=== PATIENT | male | born 1975 | race Two or more races ===

== ENCOUNTER 2020-05-30 11:56 | Inpatient (IN) | payer MEDICAID, OTHER ==
[~2020-05-30] VITALS: Ht 162.6 cm; Wt 77.1 kg
[2020-05-30] MEDS ORDERED: SODIUM CHLORIDE 0.9% 1,000 ML IV ONE ×2 (12:15)
[2020-05-30] MEDS ORDERED: NALOXONE HCL 1MG/ML 2ML SYRINGE IV ONE (12:30)
[2020-05-30 13:07] LABS: Eosinophils # (auto) 0.1 10 ^3/uL (0-0.8); Neutrophils # (auto) 7.2 10 ^3/uL (1.6-8.6); Red Cell Distribution Width 13.9 % (11.8-14.3)
[2020-05-30 13:09] LABS: Basophils # (auto) 0.1 10 ^3/uL (0-0.2); Basophils % (auto) 0.6 % (0.0-2.0); Eosinophils % (auto) 0.7 % (0.0-7.0); Hematocrit 40.4 % (41.0-53.0); Hemoglobin 13.5 g/dL (13.5-17.5); Lymphocytes # (auto) 0.7 10 ^3/uL (0.4-5.4); Lymphocytes % (auto) 8.6 % (10.0-50.0); Mean Corpuscular Hemoglobin 34.1 pg (28.0-32.0); Mean Corpuscular Hgb Conc. 33.4 g/dL (32.0-36.0); Mean Corpuscular Volume 102.1 fL (80.0-100.0); Monocytes # (auto) 0.6 10 ^3/uL (0-1.3); Monocytes % (auto) 6.9 % (0.0-12.0); Neutrophils % (auto) 83.2 % (37.0-80.0); Platelet Count (auto) 326 10^3/uL (140-450); Red Blood Cells 3.95 10^6/uL (4.5-5.90); White Blood Cell 8.7 10^3/uL (4.4-10.8)
[2020-05-30 13:37] LABS: Albumin 3.2 g/dL (3.4-5.0); Anion Gap 6 (5-15); Blood Urea Nitrogen 13 mg/dL (7-18); Calcium 7.5 mg/dL (8.5-10.1); Carbon Dioxide 25 mmol/L (21-32); Chloride 112 mmol/L (98-107); Glucose 135 mg/dL (74-106); Potassium 3.2 mmol/L (3.5-5.1); Sodium 143 mmol/L (136-145)
[2020-05-30 13:41] LABS: Alanine Aminotransferase 64 U/L (16-61); Alkaline Phosphatase 87 U/L (45-117); Aspartate Aminotransferase 106 U/L (15-37); BUN/Creatinine Ratio 21.7; Bilirubin, Total 0.2 mg/dL (0.2-1.0); GFR African American 187 mL/min; GFR Non-African American 155 mL/min; Total Protein 6.4 g/dL (6.4-8.2)
[2020-05-30] MEDS ORDERED: POTASSIUM EFFERVESENT TAB 25 MEQ PO ONE ×2 (14:15→15:15)
[2020-05-30 15:00] LABS: Acetaminophen < 2.0 ug/mL (10-30); Salicylate < 1.7 mg/dL (2.8-20.0)
[2020-05-30] MEDS ORDERED: THIAMINE 100mg/ml INJ (200mg/2ml VIAL) IV ONE ×2 (15:15→18:45)
[2020-05-30] MEDS ORDERED: ONDANSETRON HCL 4 MG/2 ML VIAL IV ONE (15:15)
[2020-05-30] MEDS ORDERED: HYDROcodone-ACET 5/325MG TAB PO PRN (18:45)
[2020-05-30] MEDS ORDERED: ALUM & MAG HYDROX-SIMETH LIQ(MAALOX) 30 ML PO PRN (18:45)
[2020-05-30] MEDS ORDERED: MORPHINE SULF INJ 2 MG/ML SYRINGE 1ML IV PRN ×2 (18:45)
[2020-05-30] MEDS ORDERED: CLINDAMYCIN 600MG IV 50 ML IV ONE (18:45)
[2020-05-30] MEDS ORDERED: LORazepam 0.5 MG TAB PO PRN (18:45)
[2020-05-30] MEDS ORDERED: ONDANSETRON HCL 4 MG/2 ML VIAL IV PRN (18:45)
[2020-05-30] MEDS ORDERED: SODIUM CHLORIDE 0.9% 1,000 ML IV SCH (18:45)
[2020-05-30] MEDS ORDERED: ACETAMINOPHEN 325 MG TAB PO PRN (18:45)
[2020-05-30] MEDS ORDERED: MULTIPLE VITAMIN TAB PO ONE (18:45)
[2020-05-30] MEDS ORDERED: LORazepam 2MG/ML-1ML VIAL IV PRN (18:45)
[2020-05-30] MEDS ORDERED: LACTATED RINGER'S 1,000 ML IV ONE (18:45)
[2020-05-30] MEDS ORDERED: NITROGLYCERIN 0.4 MG SL TAB SL PRN (18:45)
[2020-05-30] MEDS ORDERED: cefTRIAXone 1GM/50ML D5W 50 ML IV ONE (18:45)
[2020-05-30] MEDS ORDERED: DOCUSATE SOD 100 MG CAP PO PRN (18:45)
[2020-05-30] MEDS ORDERED: FOLIC ACID 1 MG TAB PO ONE (18:45)
[2020-05-30] MEDS: SOD CHL 0.9%/ KCL 40MEQ 1,000 ML IV SCH (20:56)
[2020-05-30] MEDS: CLINDAMYCIN 600MG IV 50 ML IV SCH (21:14)
[2020-05-30 22:23] LABS: BUN/Creatinine Ratio 22.7; Calcium 7.7 mg/dL (8.5-10.1); Potassium 4.2 mmol/L (3.5-5.1)
--- NOTE | 2020-05-31 01:22 | NUR ---
Telemetry admit from [facility] admitted to Telemetry unit after SBAR received. Patient oriented x 2, responsive to LORENA FALK RN primary RN, ROOM 204 and unit policies regarding patient care and visiting hours. Patient now on continuous telemetry monitoring, tele box 37 and telemetry reading on arrival to unit is NORMAL SINUS RHYTHM .Patient ON 2L NC, bed in low locked position, call light within reach, non skid socks on. bed alarm on. weighed by bedscale and encouraged to call if they need something. All questions and concerns addressed, patient verbalized understanding. Note:
[2020-05-31 02:08] LABS: Urine Bacteria FEW /hpf (None Seen); Urine Blood Negative /uL (Negative); Urine Hyaline Cast FEW /lpf (0 - 2); Urine Mucus FEW (None Seen); Urine Specific Gravity 1.021 (1.001-1.035); Urine WBC 6 /hpf (0 - 3)
[2020-05-31 02:21] LABS: Amphetamine Screen, Urine POSITIVE (NEGATIVE); Barbiturate Scree,Urine NEGATIVE (NEGATIVE); Benzodiazephine Screen, Urine NEGATIVE (NEGATIVE); Cannabinoid Screen, Urine NEGATIVE (NEGATIVE); Cocaine Screen, Urine NEGATIVE (NEGATIVE); Opiate Scree,Urine NEGATIVE (NEGATIVE); Phencyclidine Screen, Urine NEGATIVE (NEGATIVE)
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
[2020-05-31 05:00] VITALS: BP 125/78
[2020-05-31] MEDS: CLINDAMYCIN 600MG IV 50 ML IV SCH (06:05)
[2020-05-31] MEDS ORDERED: INFLUENZA QUAD 2020-2021 0.5 ML SYRG IM ONE (07:15)
--- NOTE | 2020-05-31 07:30 | NUR ---
Opening Shift Note Assumed care of patient, awake and alert. Respirations are even and unlabored. No S/S of distress/SOB or pain. Bed is low, locked with 2x side rails up. Call light is within reach. Instructed on POC and to call for assist PRN, will continue to monitor for changes Q1hr and PRN.
[2020-05-31] MEDS: SOD CHL 0.9%/ KCL 40MEQ 1,000 ML IV SCH ×2 (08:05→21:25)
[2020-05-31 08:29] VITALS: BP 118/83
[2020-05-31] MEDS: FOLIC ACID 1 MG TAB PO SCH (08:46)
[2020-05-31] MEDS: THIAMINE HCL 100 MG TAB PO SCH (08:46)
[2020-05-31] MEDS: MULTIPLE VITAMIN TAB PO SCH (08:46)
[2020-05-31] MEDS ORDERED: cefTRIAXone 1GM/50ML D5W 50 ML IV SCH (09:00)
[2020-05-31] MEDS ORDERED: ENOXAPARIN SOD 40 MG/0.4 ML SYRINGE SC SCH (10:00)
--- NOTE | 2020-05-31 11:27 | NUR ---
Assessment Regarding social service consult for resources for ETOH. Patient accepted resource. Patient is a 44-year-old male who is alert and oriented. Prior to admission patient live home with family and functioned independently. Per patient he can care for his own ADL's. Per patient he does not have any medical equipment now. Per patient he will return home to his prior living arrangements post discharge and family will transport him home. Informed patient he has the right to participate in all discharge planning. Patient verbalized understanding. [employer] telemarketing representative was at bedside. Jamie Robertson patient currently has emergency Medi-[facility] but permanent Med-[facility]ador is pending. Addendum: 05/31/20 at 1132 by JESSY COTA Amended: Links added.
--- NOTE | 2020-05-31 12:28 | NUR ---
D/C Planning Per social service consult for homeless. At the time of assessing patient he informed me he will be staying with his nephew Lai upon discharge.
[2020-05-31] MEDS ORDERED: PANTOPRAZOLE 40 MG TAB PO ONE ×2 (12:45→14:15)
[2020-05-31 12:55] VITALS: BP 122/83
--- NOTE | 2020-05-31 13:00 | NUR ---
EKG EKG done per MD orders. Read by Dr. Olson. Filed in chart for reference.
[2020-05-31] MEDS ORDERED: COLCHICINE 0.6 MG CAP PO ONE (14:15)
[2020-05-31] MEDS ORDERED: predniSONE 20 MG TAB PO ONE (14:15)
[2020-05-31] MEDS ORDERED: IBUPROFEN 600 MG TAB PO ONE (14:15)
--- NOTE | 2020-05-31 16:40 | NUR ---
Additional contact information Lai (cousin) [phone]
[2020-05-31 16:45] VITALS: BP 115/78
[2020-05-31 22:00] VITALS: BP 135/80
[2020-05-31] MEDS: IBUPROFEN 600 MG TAB PO SCH (22:30)
[2020-06-01 04:37] VITALS: BP 113/71
[2020-06-01 05:43] LABS: Basophils # (auto) 0 10 ^3/uL (0-0.2); Basophils % (auto) 0.3 % (0.0-2.0); Eosinophils # (auto) 0 10 ^3/uL (0-0.8); Hemoglobin 13.1 g/dL (13.5-17.5); Monocytes # (auto) 0.5 10 ^3/uL (0-1.3)
[2020-06-01 05:47] LABS: Eosinophils % (auto) 0.1 % (0.0-7.0); Hematocrit 38.6 % (41.0-53.0); Lymphocytes # (auto) 0.4 10 ^3/uL (0.4-5.4); Lymphocytes % (auto) 6.5 % (10.0-50.0); Mean Corpuscular Hemoglobin 34.8 pg (28.0-32.0); Mean Corpuscular Hgb Conc. 33.9 g/dL (32.0-36.0); Mean Corpuscular Volume 102.4 fL (80.0-100.0); Neutrophils # (auto) 5.9 10 ^3/uL (1.6-8.6); Neutrophils % (auto) 86.1 % (37.0-80.0); Platelet Count (auto) 311 10^3/uL (140-450); Red Blood Cells 3.77 10^6/uL (4.5-5.90); Red Cell Distribution Width 13.9 % (11.8-14.3); White Blood Cell 6.9 10^3/uL (4.4-10.8)
[2020-06-01] MEDS: IBUPROFEN 600 MG TAB PO SCH (05:53)
[2020-06-01 06:09] LABS: Calcium 8.2 mg/dL (8.5-10.1); Chloride 101 mmol/L (98-107); Potassium 4.7 mmol/L (3.5-5.1); Sodium 134 mmol/L (136-145)
[2020-06-01 06:17] LABS: Alanine Aminotransferase 37 U/L (16-61); Alkaline Phosphatase 79 U/L (45-117); Anion Gap 4 (5-15); Aspartate Aminotransferase 27 U/L (15-37); Bilirubin, Total 0.5 mg/dL (0.2-1.0); Blood Urea Nitrogen 6 mg/dL (7-18); Carbon Dioxide 29 mmol/L (21-32); GFR African American 231 mL/min; GFR Non-African American 191 mL/min; Glucose 130 mg/dL (74-106); Total Protein 6.4 g/dL (6.4-8.2)
--- NOTE | 2020-06-01 08:00 | NUR ---
OPENING SHIFT NOTE: PATIENT RESTING IN BED, A/OX4 PATIENT MAKING JOKES. RESPIRATIONS EVEN AND UNLABORED. UPDATED ON PLAN OF CARE. CALL LIGHT WITHIN REACH, WILL CONTINUE TO MONITOR.
[2020-06-01 09:00] VITALS: BP 126/85
--- NOTE | 2020-06-01 09:20 | NUR ---
MD JACQUELINE YE.
[2020-06-01] MEDS: THIAMINE HCL 100 MG TAB PO SCH (09:59)
[2020-06-01] MEDS: FOLIC ACID 1 MG TAB PO SCH (10:00)
[2020-06-01] MEDS ORDERED: predniSONE 20 MG TAB PO SCH (10:00)
[2020-06-01] MEDS ORDERED: COLCHICINE 0.6 MG CAP PO SCH (10:00)
[2020-06-01] MEDS ORDERED: PANTOPRAZOLE 40 MG TAB PO SCH ×2 (10:00)
[2020-06-01] MEDS: MULTIPLE VITAMIN TAB PO SCH (10:00)
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
[2020-06-01] MEDS: SOD CHL 0.9%/ KCL 40MEQ 1,000 ML IV SCH (10:45)
--- NOTE | 2020-06-01 12:52 | NUR ---
CALL MADE TO FAMILY FOR TRANSPORTATION HOME, NO ANSWER WILL RETRY.
[2020-06-01 13:00] VITALS: BP 113/70
--- NOTE | 2020-06-01 15:01 | NUR ---
DISCHARGE: PATIENT GIVEN ALL EDUCATION MATERIALS, ENCOURAGED TO TAKE MEDICATIONS PICKED UP FROM PHARMACY PRESCRIBED. PATIENT VERBALIZED UNDERSTANDING, INSTRUCTIONS ALSO GIVEN TO GINGER VIA TELEPHONE. PATIENT IV REMOVED, MANUAL PRESSURE APPLIED. TELE RETURNED TO CARDIO UNIT. PATIENT TAKEN TO MAIN LOBBY BY THIS RN WITH ALL BELONGINGS.
== END 2020-06-01 15:08 | disposition home or self-care (01) | DRG 812 ==
LOC: ER 11:56 → EDBD 11:56 → TELE 11:57 → TELE-CENTR 05-31 01:20
PROVIDERS: ADMIT Hospitalist; ATTEND Internal Medicine
DX: T50.901A Poisoning by unspecified drugs, medicaments and biological substances, accidental (unintentional), initial encounter (principal); G92 Toxic encephalopathy; F10.129 Alcohol abuse with intoxication, unspecified; I21.A1 Myocardial infarction type 2; F19.90 Other psychoactive substance use, unspecified, uncomplicated; E87.6 Hypokalemia; K70.10 Alcoholic hepatitis without ascites; D72.829 Elevated white blood cell count, unspecified; K29.20 Alcoholic gastritis without bleeding; E78.5 Hyperlipidemia, unspecified; I31.9 Disease of pericardium, unspecified; R91.1 Solitary pulmonary nodule; F17.210 Nicotine dependence, cigarettes, uncomplicated; I08.0 Rheumatic disorders of both mitral and aortic valves; I70.0 Atherosclerosis of aorta; Z59.0 Homelessness; R00.0 Tachycardia, unspecified
CPT/HCPCS: 36415; 70450; 71045; 80048; 80053; 80061; 80307; 80320; 80329; 81001; 82962; 83036; 83735; 84443; 84484; 85025; 85652; 86141; 87040; 87086; 93005; 93306; G0378; J0696; J2405; J3490